=== PATIENT | male | born 1980 | race Caucasian/White ===

== ENCOUNTER 2018-08-13 17:51 | Emergency (ER) | payer SELFPAY ==
[~2018-08-13] VITALS: Ht 177.8 cm; Wt 73.5 kg
[2018-08-13 18:03] VITALS: Ht 177.8 cm; Wt 73.5 kg
[2018-08-13 20:09] VITALS: BP 122/79
== END 2018-08-13 20:09 | disposition home or self-care (01) ==
LOC: ED 17:51
DX: K64.4 Residual hemorrhoidal skin tags (principal)